=== PATIENT | male | born 1965 | race Caucasian/White ===

== ENCOUNTER 2020-07-13 21:18 | Emergency (ER) | payer OTHER ==
[~2020-07-13] VITALS: Ht 182 cm; Wt 83.0 kg
[2020-07-13] MEDS ORDERED: NS IV 1000 ML 1,000 ML IV SCH (21:45)
[2020-07-13] MEDS ORDERED: cefTRIAXone FOR IV USE 1,000 MG in WATER (STERILE) FOR INJECTION 10 ML IV ONE (21:45)
--- NOTE | 2020-07-13 21:46 | ED Lower Extremity ---
General Chief Complaint: Lower Extremity Stated Complaint: BRUISED LT ANKLE,FEVER Source: patient, police Exam Limitations: no limitations History of Present Illness Date Seen by Provider: July 13, 2020 Time Seen by Provider: 09:35 Initial Comments 54-year-old incarcerated male presents in custody of law enforcement with complaint of right leg pain and redness for the past 2 days getting rapidly worse. Patient with a history of chronic skin condition of his right leg with persistent itching which she is often scratching and occasionally oozez or bleeds. Denies a history of CHF. or other skin problems. Has never had infection of his leg. Denies fever or chills. Allergies and Home Medications Allergies Coded Allergies: No Known Drug Allergies (Unverified , 07/13/20) Home Medications Sulfamethoxazole/Trimethoprim 1 Each Tablet, 1 EACH PO BID Take 2 tabs po bid for 2 days, then 1 tab po bid until gone Prescribed by: EVERETTE PHILLIPS on 07/13/202150 Triamcinolone Acetonide 15 Gm Cream..g., 30 GM TP BID apply twice daily to inflamed (chronic dermatitis) areas or right lower leg Prescribed by: EVERETTE PHILLIPS on 07/13/202150 Patient Home Medication List Home Medication List Reviewed: Yes Review of Systems Constitutional: see HPI Respiratory: No cough, No short of breath Cardiovascular: no symptoms reported Gastrointestinal: no symptoms reported Musculoskeletal: other (RLE pain, swelling and redness) Skin: see HPI, change in color, pruritus (chronic), rash Past Awkjcir-Hipquo-Kgdssg Hx Past Med/Social Hx: Reviewed Nursing Past Med/Soc Hx Patient Social History Alcohol Use: Denies Use Smoking Status: Never a Smoker Physical Exam Vital Signs Vital Signs - First Documented 07/13/20 21:24 Temp 37.5 Pulse 99 Resp 16 B/P (MAP) 109/63 (78) Pulse Ox 97 Capillary Refill : Height, Weight, BMI Height: '" Weight: lbs. oz. kg; BMI Method: General Appearance: WD/WN, no apparent distress Cardiovascular: regular rate, rhythm, no edema, no JVD Respiratory: chest non-tender, lungs clear, normal breath sounds, no respiratory distress Legs: right leg normal range of motion, right leg pain, right leg soft tissue tenderness, right leg swelling, right leg other (redness) Neurologic/Psychiatric: no motor/sensory deficits, alert, normal mood/affect Skin: other (erythema lower leg) Near circumferential erythema of the right middle and upper leg consistent with cellulitis originating from chronic dermatitis of the right lower leg with moderate excoriations and scarring. Mild tenderness, no wound discharge, flaking or drainage/abscess. Erythema does not go proximal to his knee. Progress/Results/Core Measures Results/Orders Lab Results Laboratory Tests Test 07/13/20 21:52 Range/Units White Blood Count 22.7 H 4.3-11.0 10^3/uL Red Blood Count 4.98 4.35-5.85 10^6/uL Hemoglobin 15.2 13.3-17.7 G/DL Hematocrit 44 40-54 % Mean Corpuscular Volume 88 80-99 FL Mean Corpuscular Hemoglobin 31 25-34 PG Mean Corpuscular Hemoglobin Concent 35 32-36 G/DL Red Cell Distribution Width 14.6 H 10.0-14.5 % Platelet Count 101 L 130-400 10^3/uL Mean Platelet Volume 10.2 7.4-10.4 FL Immature Granulocyte % (Auto) 1 % Neutrophils (%) (Auto) 84 H 42-75 % Lymphocytes (%) (Auto) 7 L 12-44 % Monocytes (%) (Auto) 8 0-12 % Eosinophils (%) (Auto) 0 0-10 % Basophils (%) (Auto) 0 0-10 % Neutrophils # (Auto) 19.0 H 1.8-7.8 X 10^3 Lymphocytes # (Auto) 1.6 1.0-4.0 X 10^3 Monocytes # (Auto) 1.8 H 0.0-1.0 X 10^3 Eosinophils # (Auto) 0.0 0.0-0.3 10^3/uL Basophils # (Auto) 0.1 0.0-0.1 10^3/uL Immature Granulocyte # (Auto) 0.2 H 0.0-0.1 10^3/uL My Orders Orders - EVERETTE PHILLIPS DO Ed Iv/Invasive Line Start (07/13/20 21:39) Cbc With Automated Diff (07/13/20 21:39) Comprehensive Metabolic Panel (07/13/20 21:39) Lactic Acid Analyzer (07/13/20 21:39) Ns Iv 1000 Ml (Sodium Chloride 0.9%) (07/13/20 21:45) Ceftriaxone For Iv Use (Rocephin For I (07/13/20 21:45) Manual Differential (07/13/20 21:52) Vital Signs/I&O 07/13/20 21:24 Temp 37.5 Pulse 99 Resp 16 B/P (MAP) 109/63 (78) Pulse Ox 97 Progress Progress Note : Progress Note Appears to have chronic pruritic, dermatitis of right lower extremity much worse than left lower extremity. Seems to have secondary infection related to this uncontrolled dermatitis. Will give IV antibiotics and sent home with p.o. antibiotics with close follow-up in 24 to 48 hours if not improving Departure Impression Primary Impression: Cellulitis of leg, right Additional Impression: Chronic stasis dermatitis of right lower extremity Disposition: 01 HOME, SELF-CARE (incarcerated) Condition: Stable Departure-Patient Inst. Decision time for Depature: 22:14 Patient Instructions: Cellulitis (Skin Infection), Adult (DC) Add. Discharge Instructions: RE-eval tomorrow by your PCP for improvement or worsening. I would advise waiting over 24 hours to allow adequate time for antibiotics to be effective. Return to the ER for any significant worsening of infection to consider admission All discharge instructions reviewed with patient and/or family. Voiced underst anding. Scripts Triamcinolone Acetonide (Triamcinolone Acetonide 0.5% Cream) 15 Gm Cream..g. 30 GM TP BID for Rash, #1 TUBE apply twice daily to inflamed (chronic dermatitis) areas or right lower leg Prov: EVERETTE PHILLIPS DO 07/13/20 Sulfamethoxazole/Trimethoprim (Bactrim Ds Tablet) 1 Each Tablet 1 EACH PO BID, #20 TAB 0 Refills Take 2 tabs po bid for 2 days, then 1 tab po bid until gone Prov: EVERETTE PHILLIPS DO 07/13/20 EVERETTE PHILLIPS DO July 13, 2020 21:46
[2020-07-13] MEDS ORDERED: TRIA15CR TP (21:51)
[2020-07-13] MEDS ORDERED: SULF1TAB35 PO (21:51)
[2020-07-13 22:03] LABS: HEMATOCRIT 44 % (40-54); HEMOGLOBIN 15.2 G/DL (13.3-17.7); MEAN CORPUSCULAR HEMOGLOBIN 31 PG (25-34); MEAN CORPUSCULAR VOLUME 88 FL (80-99); WHITE BLOOD COUNT 22.7 10^3/uL (4.3-11.0)
[2020-07-13 22:04] LABS: BASOPHILS # (AUTO) 0.1 10^3/uL (0.0-0.1); BASOPHILS % (AUTO) 0 % (0-10); EOSINOPHILS % (AUTO) 0 % (0-10); LYMPHOCYTES # (AUTO) 1.6 X 10^3 (1.0-4.0); LYMPHOCYTES % (AUTO) 7 % (12-44); MEAN CORPUSCULAR HGB CONC 35 G/DL (32-36); MEAN PLATELET VOLUME 10.2 FL (7.4-10.4); MONOCYTES # (AUTO) 1.8 X 10^3 (0.0-1.0); MONOCYTES % (AUTO) 8 % (0-12); NEUTROPHILS % (AUTO) 84 % (42-75); PLATELET COUNT 101 10^3/uL (130-400)
[2020-07-13 22:23] LABS: BUN/CREATININE RATIO 18; CARBON DIOXIDE 19 MMOL/L (21-32); CHLORIDE 100 MMOL/L (98-107); CREATININE SERUM 1.02 MG/DL (0.60-1.30); GFR ESTIMATED > 60; SODIUM 131 MMOL/L (135-145)
[2020-07-13 22:24] LABS: ALANINE AMINOTRANSFERASE 37 U/L (0-55); ALBUMIN 3.4 GM/DL (3.2-4.5); ALKALINE PHOSPHATASE 123 U/L (40-136); BILIRUBIN,TOTAL 1.9 MG/DL (0.1-1.0); CALCIUM 8.5 MG/DL (8.5-10.1); GLUCOSE 172 MG/DL (70-105); TOTAL PROTEIN 7.3 GM/DL (6.4-8.2)
[2020-07-13 22:30] LABS: BAND NEUTROPHILS 6 %; BASOPHILS % (MANUAL) 0 %; EOSINOPHILS % (MANUAL) 0 %; LYMPHOCYTES % (MANUAL) 8 %; MONOCYTES % (MANUAL) 8 %; NEUTROPHILS % (MANUAL) 78 %
[2020-07-13 22:41] VITALS: BP 109/63
== END 2020-07-13 22:37 | disposition home or self-care (01) ==
LOC: ER FS 21:22
DX: L03.115 Cellulitis of right lower limb (principal); I87.2 Venous insufficiency (chronic) (peripheral)
CPT/HCPCS: 36415; 80053; 83605; 85007; 85027